=== PATIENT | female | born 1990 ===

== ENCOUNTER 2022-04-30 05:39 | Day surgery (SDC) | payer OTHER | END 2022-04-30 14:00 | disposition home or self-care (01) | LOC: CIR.AMB 05:39 | PROVIDERS: ATTEND Specialist | DX: N84.0 Polyp of corpus uteri (principal); Z20.822 Contact with and (suspected) exposure to COVID-19 ==

== ENCOUNTER 2022-05-04 19:04 | Emergency (ER) | payer OTHER ==
[~2022-05-04] VITALS: Ht 152.4 cm; Wt 68.0 kg
[2022-05-04] MEDS ORDERED: TYLENOL (20:11)
[2022-05-05] MEDS ORDERED: KETO10TA2 PO (08:11)
[2022-05-05] MEDS ORDERED: ORPHENADRINE C100 MG PO (08:11)
== END 2022-05-05 08:24 ==
LOC: ER 19:04
DX: G97.1 Other reaction to spinal and lumbar puncture (principal)